=== PATIENT | male | born 2000 | race American Indian/Alaskan Native ===

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

== ENCOUNTER 2022-04-25 20:47 | Emergency (ER) | payer SELFPAY ==
--- NOTE | 2022-04-26 03:04 | Emergency Department Report ---
ED Extremity Problem HPI - General Chief complaint: Extremity Injury, Lower Stated complaint: BILATERAL FOOT PAIN Time Seen by Provider: 04/26/22 02:48 Source: patient Mode of arrival: Stretcher Limitations: No Limitations - History of Present Illness Initial comments: 21-year-old male with a past medical history of schizophrenia presents emerged department complaining of atraumatic bilateral lower extremity pain worse with walking, palpation. Reports no fever, chills, sweats. No numbness or tingling, no nausea vomiting, no to the feet does walk around in flip-flops. Pain is at the top and the bottom of the foot MD Complaint: extremity pain -: Gradual Location: bilateral lower extremity History of Same: Yes Radiation: none Severity scale (0 -10): 0 Quality: burning, aching Consistency: constant Improves with: nothing Worsens with: nothing Associated Symptoms: denies other symptoms - Related Data Home Medications Medication Instructions Recorded Confirmed Last Taken Albuterol Sulfate [Ventolin HFA] 2 puff IH Q4H PRN 01/13/17 01/13/17 Unknown Benztropine [Cogentin] 1 mg PO DAILY 01/13/17 01/13/17 01/13/17 FLUoxetine [PROzac] 20 mg PO QDAY 01/13/17 01/13/17 01/13/17 Topiramate [Topamax] 100 mg PO BID 01/13/17 01/13/17 01/13/17 risperiDONE [RisperDAL] 2 mg PO BID 01/13/17 01/13/17 01/13/17 Previous Rx's Medication Instructions Recorded Last Taken Type Acetaminophen [Acetaminophen TAB] 500 mg PO Q6HR PRN #30 tablet 12/12/17 Unknown Rx Ondansetron [Zofran Odt] 4 mg PO Q8HR PRN #20 tab.rapdis 12/22/17 Unknown Rx Ibuprofen [Motrin] 600 mg PO Q8H PRN #30 tablet 12/23/17 Unknown Rx Cetirizine HCl [ZyrTEC] 10 mg PO QAM 14 Days #14 capsule 12/28/17 Unknown Rx Fluticasone [Flonase] 1 spray NS QDAY 14 Days #1 bottle 12/28/17 Unknown Rx Ibuprofen [Motrin] 600 mg PO Q8H PRN #12 tablet 05/27/18 Unknown Rx Ketorolac [Toradol] 10 mg PO Q6H PRN #14 tablet 12/26/18 Unknown Rx Amoxicillin 500 mg PO BID #20 capsule 02/03/19 Unknown Rx Benzonatate [Tessalon Perles] 100 mg PO BID PRN #20 capsule 02/03/19 Unknown Rx Cetirizine HCl [ZyrTEC] 10 mg PO DAILY #30 capsule 02/03/19 Unknown Rx Fluticasone [Flonase] 1 spray NS QDAY #1 bottle 02/03/19 Unknown Rx predniSONE [Deltasone] 20 mg PO DAILY #5 tablet 02/03/19 Unknown Rx Ketorolac [Toradol] 10 mg PO Q6H PRN #7 04/26/22 Unknown Rx Allergies Allergy/AdvReac Type Severity Reaction Status Date / Time No Known Allergies Allergy Verified 01/20/22 09:46 ED Review of Systems ROS: Stated complaint: BILATERAL FOOT PAIN Other details as noted in HPI Comment: All other systems reviewed and negative ED Past Medical Hx - Past Medical History Previous Medical History?: Yes Hx Psychiatric Treatment: Yes (Bipolar and depression, anxiety) Additional medical history: Bipolar, Mood Disorder, depression - Surgical History Past Surgical History?: No - Social History Smoking Status: Never Smoker Substance Use Type: None - Medications Home Medications: Home Medications Medication Instructions Recorded Confirmed Last Taken Type Albuterol Sulfate [Ventolin HFA] 2 puff IH Q4H PRN 01/13/17 01/13/17 Unknown History Benztropine [Cogentin] 1 mg PO DAILY 01/13/17 01/13/17 01/13/17 History FLUoxetine [PROzac] 20 mg PO QDAY 01/13/17 01/13/17 01/13/17 History Topiramate [Topamax] 100 mg PO BID 01/13/17 01/13/17 01/13/17 History risperiDONE [RisperDAL] 2 mg PO BID 01/13/17 01/13/17 01/13/17 History Acetaminophen [Acetaminophen TAB] 500 mg PO Q6HR PRN #30 tablet 12/12/17 12/14/17 Unknown Rx Ondansetron [Zofran Odt] 4 mg PO Q8HR PRN #20 tab.rapdis 12/22/17 Unknown Rx Ibuprofen [Motrin] 600 mg PO Q8H PRN #30 tablet 12/23/17 Unknown Rx Cetirizine HCl [ZyrTEC] 10 mg PO QAM 14 Days #14 capsule 12/28/17 Unknown Rx Fluticasone [Flonase] 1 spray NS QDAY 14 Days #1 bottle 12/28/17 Unknown Rx Ibuprofen [Motrin] 600 mg PO Q8H PRN #12 tablet 05/27/18 Unknown Rx Ketorolac [Toradol] 10 mg PO Q6H PRN #14 tablet 12/26/18 Unknown Rx Amoxicillin 500 mg PO BID #20 capsule 02/03/19 Unknown Rx Benzonatate [Tessalon Perles] 100 mg PO BID PRN #20 capsule 02/03/19 Unknown Rx Cetirizine HCl [ZyrTEC] 10 mg PO DAILY #30 capsule 02/03/19 Unknown Rx Fluticasone [Flonase] 1 spray NS QDAY #1 bottle 02/03/19 Unknown Rx predniSONE [Deltasone] 20 mg PO DAILY #5 tablet 02/03/19 Unknown Rx Ketorolac [Toradol] 10 mg PO Q6H PRN #7 04/26/22 Unknown Rx ED Physical Exam - General Limitations: No Limitations General appearance: alert, in no apparent distress - Head Head exam: Present: atraumatic, normocephalic - Eye Eye exam: Present: normal appearance - ENT ENT exam: Present: mucous membranes moist - Neck Neck exam: Present: normal inspection - Respiratory Respiratory exam: Present: normal lung sounds bilaterally. Absent: respiratory distress - Cardiovascular Cardiovascular Exam: Present: regular rate, normal rhythm. Absent: systolic murmur, diastolic murmur, rubs, gallop - GI/Abdominal GI/Abdominal exam: Present: soft, normal bowel sounds - Rectal Rectal exam: Present: deferred - Extremities Exam Extremities exam: Present: normal inspection, other (Does have large callus to the bottom of the feet no broken skin no cellulitis is noted.). Absent: tenderness - Back Exam Back exam: Present: normal inspection - Neurological Exam Neurological exam: Present: alert, oriented X3 - Psychiatric Psychiatric exam: Present: normal affect, normal mood - Skin Skin exam: Present: warm, dry, intact, normal color. Absent: rash ED Course Vital Signs 04/25/22 22:55 Temperature 98 F Pulse Rate 68 Respiratory 16 Rate Blood Pressure 111/78 [Left] O2 Sat by Pulse 100 Oximetry ED Medical Decision Making - Medical Decision Making 19-year-old male presents emerged from for bilateral foot pain with no significant findings patient has no mental health history may be here for inappropriate reasons nonetheless treated him in the event there was some soreness due to excessive ambulation as he is ambulating with no limping/antalgic gait. Critical care attestation.: If time is entered above; I have spent that time in minutes in the direct care of this critically ill patient, excluding procedure time. ED Disposition Clinical Impression: Foot pain, bilateral Disposition: 01 HOME / SELF CARE / HOMELESS Is pt being admited?: No Does the pt Need Aspirin: No Condition: Stable Instructions: Pain Without a Known Cause Prescriptions: Ketorolac [Toradol] 10 mg PO Q6H PRN #7 PRN Reason: Pain Referrals: [facility] [Provider Group] - 3-5 Days
[2022-04-26] MEDS ORDERED: IBUPROFEN 800 MG TAB PO ONE (03:27)
[2022-04-26 04:04] VITALS: BP 117/79
== END 2022-04-26 04:04 | disposition home or self-care (01) ==
LOC: ED 20:47
DX: M79.604 Pain in right leg (principal); M79.605 Pain in left leg; F32.9 Major depressive disorder, single episode, unspecified; F41.9 Anxiety disorder, unspecified; F39 Unspecified mood [affective] disorder
CPT/HCPCS: 99283

== ENCOUNTER 2022-04-30 13:55 | Emergency (ER) | payer SELFPAY ==
[2022-04-30 14:10] VITALS: BP 131/49
--- NOTE | 2022-04-30 14:15 | Emergency Department Report ---
Chief Complaint: Medical Clearance Stated Complaint: SWOLLEN ANKLE/FEET Time Seen by Provider: 04/30/22 14:13 - HPI History of Present Illness: 2-day history of worsening bilateral ankle pain and swelling along with some intermittent shortness of breath. He denies injury. - ROS Review of Systems: Patient denies chest pain, nausea, vomiting, dizziness. - Exam Vital Signs: Vital Signs 04/30/22 14:08 Temperature 97.7 F Pulse Rate 71 Respiratory 18 Rate Blood Pressure 131/49 [Right] O2 Sat by Pulse 99 Oximetry Physical Exam: Bilateral ankle edema noted. MSE screening note: Focused history and physical exam performed. Due to findings the following was ordered: CMP, CBC, BMP, and chest x-ray. MSE screening completed, and patient to be seen and evaluated by another provider when he gets to the room. No acute distress noted. ED Disposition for MSE Condition: Stable
--- NOTE | 2022-04-30 15:01 | XRay Report ---
CHEST 2 VIEWS INDICATION / CLINICAL INFORMATION: Short of breath. COMPARISON: None available. FINDINGS: SUPPORT DEVICES: None. HEART / MEDIASTINUM: No significant abnormality. LUNGS / PLEURA: No significant pulmonary abnormality. No significant pleural effusion. No pneumothora x. ADDITIONAL FINDINGS: No significant additional findings. IMPRESSION: 1. No acute abnormality of the chest. Signer Name: Rizwan Shelton MD Signed: 04/30/2022 2:56 PM Workstation Name: [employer]
[2022-04-30 15:25] LABS: Hematocrit 40.8 % (35.5-45.6); Hemoglobin 13.3 gm/dl (11.8-15.2); Mean Corpuscular HGB Conc 33 % (32-34); Mean Corpuscular Volume 81 fl (84-94); Platelet Count 200 K/mm3 (140-440); Red Blood Count 5.06 M/mm3 (3.65-5.03); Red Cell Distribution Width 13.5 % (13.2-15.2)
[2022-04-30 15:52] LABS: Alanine Aminotransferase 14 units/L (7-56); Albumin 3.9 g/dL (3.9-5); BUN/Creatinine Ratio 15; Blood Urea Nitrogen 12 mg/dL (9-20); Calcium 9.5 mg/dL (8.4-10.2); Hemolysis Index 4
== END 2022-04-30 18:00 | disposition left against medical advice (07) ==
LOC: ED 13:55
DX: M25.571 Pain in right ankle and joints of right foot (principal); M25.572 Pain in left ankle and joints of left foot; Z53.21 Procedure and treatment not carried out due to patient leaving prior to being seen by health care provider
CPT/HCPCS: 36415; 71046; 80053; 83880; 85027

== ENCOUNTER 2022-05-28 11:20 | Emergency (ER) | payer SELFPAY ==
[2022-05-28 12:00] VITALS: BP 124/81
== END 2022-05-29 22:06 | disposition left against medical advice (07) ==
LOC: ED 11:20
DX: H57.9 Unspecified disorder of eye and adnexa (principal); Z53.21 Procedure and treatment not carried out due to patient leaving prior to being seen by health care provider